=== PATIENT | female | born 1945 | race Caucasian/White ===

== ENCOUNTER 2017-07-02 20:31 | Inpatient (IN) | payer MEDICARE, OTHER ==
[~2017-07-02] VITALS: Ht 157.5 cm; Wt 82.6 kg
[~2017-07-02 20:31] MED LIST: ALBU05 INH; FLUT1DIS INH
[2017-07-02] MEDS ORDERED: ACETAMINOPHEN 325MG TABLET PO STA (23:18)
[2017-07-02] MEDS ORDERED: IPRATROPIUM BROMIDE (0.02%) 0.5MG/2.5ML NEB HHN STA (23:18)
[2017-07-02] MEDS ORDERED: ALBUTEROL (0.083%) 2.5MG/3ML NEB HHN STA (23:18)
[2017-07-02] MEDS ORDERED: METHYLPREDNISOLONE SOD SUCC 125 MG/2 ML VIAL IV STA (23:18)
[2017-07-02] MEDS ORDERED: SODIUM CHLORIDE 0.9% 1,000 ML IV ONE (23:18)
[2017-07-02] MEDS ORDERED: AZITHROMYCIN 500 MG in DEXT 5% WATER 250 ML IV ONE (23:30)
[2017-07-02] MEDS ORDERED: MAGNESIUM 2 G PREMIX 50 ML IV ONE (23:30)
[2017-07-02] MEDS ORDERED: CEFTRIAXONE 1 G PREMIX 50 ML IV ONE (23:30)
[2017-07-02] MEDS ORDERED: ASPIRIN 81MG TABLET PO ONE (23:30)
[2017-07-02] MEDS ORDERED: NITROGLYCERIN OINT 1GM/INCH UDPKT TD ONE (23:30)
[2017-07-03 00:05] LABS: HEMOGLOBIN. 11.6 g/dL (12.0-16.0); MEAN CORPUSCULAR HEMOGLOBIN 28.2 pg (28.0-32.0); MEAN CORPUSCULAR VOLUME 87.5 fL (81.0-99.0); MEAN PLATELET VOLUME 7.1 fl (7.4-10.4); PLATELET 324 x1000/uL (130-400); RED BLOOD CELL COUNT 4.11 mill/uL (4.2-5.4); RED CELL DISTRIBUTION WIDTH 14.2 % (11.6-14.6)
[2017-07-03 00:26] LABS: CHLORIDE 94 mEq/L (98-107); ETHANOL BLOOD < 10 mg/dL; TROPONIN I < 0.02 ng/mL (0.00-0.04)
[2017-07-03 00:31] LABS: INR 1.2; PROTHROMBIN TIME 12.2 sec (9.4-11.6)
[2017-07-03] MEDS ORDERED: OSELTAMIVIR 75MG CAPSULE PO ONE (00:45)
[2017-07-03 00:49] LABS: BG BASE EXCESS 8.6 mmol/L (-2.0-2.0); BG CARBOXYHEMOGLOBIN 0.6 % (0.5-1.5); BG DEOXYHEMOGLOBIN 0.7 % (0.0-5.0); BG FRACTION INSPIRED OXYGEN 36; BG HCO3 ACT 36.3 mmol/L (22.0-26.0); BG METHEMOGLOBIN 0.3 % (0.0-1.5); BG OXYGEN SATURATION 99.3 % (92.0-98.5); BG OXYHEMOGLOBIN 98.4 % (94.0-97.0); BG PCO2 65.9 mmHg (35.0-45.0); BG PH 7.359 (7.350-7.450); BG SAMPLE SITE RIGHT RADIAL; BG TOTAL HEMOGLOBIN 12.8 g/dL (12.0-18.0); BG VENT MODE NASAL CANNULA
[2017-07-03 01:38] LABS: PLATELET ESTIMATE NORMAL
[2017-07-03] MEDS ORDERED: AZITHROMYCIN 500 MG in SODIUM CHLORIDE 0.9% 250 ML IV ONE (01:45)
[2017-07-03] MEDS ORDERED: ALBUTEROL (0.083%) 2.5MG/3ML NEB HHN STA (06:16)
[2017-07-03 08:50] VITALS: BP 128/72
[2017-07-03 09:00] VITALS: BP 128/72
[2017-07-03] MEDS ORDERED: PROT20 PO (09:51)
[2017-07-03] MEDS ORDERED: SERT-112 PO (09:51)
[2017-07-03] MEDS ORDERED: FERR325T6 PO (09:51)
[2017-07-03] MEDS ORDERED: AMLO10TA80 PO (09:51)
[2017-07-03] MEDS ORDERED: LOSA1TAB34 PO (09:51)
[2017-07-03] MEDS ORDERED: DEXT 5%/0.45% NACL 1000ML 1,000 ML IV SCH (10:18)
[2017-07-03] MEDS ORDERED: CEFTRIAXONE 1,000 MG in DEXTROSE 5% WATER 50 ML IV SCH (10:30)
[2017-07-03] MEDS ORDERED: LORAZEPAM 2MG/ML CPJ IV PRN (10:30)
[2017-07-03] MEDS ORDERED: ACETAMINOPHEN 325MG TABLET PO PRN (10:30)
[2017-07-03] MEDS ORDERED: ONDANSETRON HCL 4MG/2ML VIAL IV PRN (10:30)
[2017-07-03] MEDS ORDERED: DOCUSATE SODIUM 100MG CAPSULE PO PRN (10:30)
[2017-07-03] MEDS ORDERED: CLONIDINE 0.1MG TABLET PO PRN (10:30)
[2017-07-03] MEDS: ENOXAPARIN 40MG/0.4ML SYR SUBCUT SCH (11:18)
[2017-07-03 12:00] VITALS: BP 129/93
[2017-07-03] MEDS ORDERED: MEDICATION NOT ON FORMULARY EA (Pantoprazole Sodium (Protonix) 1 TAB) PO SCH (12:15)
[2017-07-03] MEDS ORDERED: MEDICATION NOT ON FORMULARY EA (Ferrous Sulfate 325 MG) PO SCH (12:15)
[2017-07-03] MEDS ORDERED: MEDICATION NOT ON FORMULARY EA (Losartan/Hydrochlorothiazide (Losartan-Hctz 50-12.5 Mg T PO SCH (12:15)
[2017-07-03] MEDS ORDERED: MULT-1116 PO (12:17)
[2017-07-03] MEDS: FERROUS SULFATE 325MG TABLET PO SCH (13:01)
[2017-07-03] MEDS: SERTRALINE HCL 50MG TABLET PO SCH (13:01)
[2017-07-03] MEDS: AMLODIPINE 5MG TABLET PO SCH (13:01)
[2017-07-03] MEDS: LOSARTAN POTASSIUM 50 MG TABLET PO SCH (13:01)
[2017-07-03] MEDS: HYDROCHLOROTHIAZIDE 12.5MG CAPSULE PO SCH (13:02)
[2017-07-03] MEDS: PANTOPRAZOLE 40MG DR TABLET PO SCH (13:03)
[2017-07-03] MEDS ORDERED: THROAT LOZENGES-BENZOCAINE/MENTH/CETYLPYRD CL LOZENGES MM PRN (13:15)
[2017-07-03] MEDS: METHYLPREDNISOLONE SOD SUCC 125 MG/2 ML VIAL IV SCH ×2 (13:20→21:08)
[2017-07-03 16:00] VITALS: BP 113/62
[2017-07-03 20:00] VITALS: BP 128/77
[2017-07-03] MEDS: ALBUTEROL (0.083%) 2.5MG/3ML NEB HHN PRN (22:55)
[2017-07-04] VITALS (7 sets, daily range): BP systolic 111–138; BP diastolic 67–86
[2017-07-04] MEDS: CEFTRIAXONE 1 G PREMIX 50 ML IV SCH ×2 (00:06→23:56)
[2017-07-04] MEDS: AZITHROMYCIN 500 MG in DEXT 5% WATER 250 ML IV SCH (00:50)
[2017-07-04] MEDS: PANTOPRAZOLE 40MG DR TABLET PO SCH (06:31)
[2017-07-04] MEDS: METHYLPREDNISOLONE SOD SUCC 125 MG/2 ML VIAL IV SCH ×3 (06:31→21:48)
[2017-07-04] MEDS: HYDROCHLOROTHIAZIDE 12.5MG CAPSULE PO SCH (08:25)
[2017-07-04] MEDS: AMLODIPINE 5MG TABLET PO SCH (08:25)
[2017-07-04] MEDS: FERROUS SULFATE 325MG TABLET PO SCH (08:25)
[2017-07-04] MEDS: ENOXAPARIN 40MG/0.4ML SYR SUBCUT SCH (08:25)
[2017-07-04] MEDS: LOSARTAN POTASSIUM 50 MG TABLET PO SCH (08:26)
[2017-07-04] MEDS: SERTRALINE HCL 50MG TABLET PO SCH (08:26)
[2017-07-04 10:58] LABS: BG BASE EXCESS 12.6 mmol/L (-2.0-2.0); BG CARBOXYHEMOGLOBIN 0.5 % (0.5-1.5); BG DEOXYHEMOGLOBIN 5.3 % (0.0-5.0); BG HCO3 ACT 41.1 mmol/L (22.0-26.0); BG METHEMOGLOBIN 0.1 % (0.0-1.5); BG OXYGEN SATURATION 94.7 % (92.0-98.5); BG OXYHEMOGLOBIN 94.1 % (94.0-97.0); BG PCO2 74.5 mmHg (35.0-45.0); BG SAMPLE SITE RIGHT RADIAL; BG TOTAL HEMOGLOBIN 12.5 g/dL (12.0-18.0); BG VENT MODE NASAL CANNULA
[2017-07-04 11:26] LABS: HEMATOCRIT. 35.9 % (36.0-48.0); HEMOGLOBIN. 11.4 g/dL (12.0-16.0); MEAN CORPUSCULAR HEMOGLOBIN 27.8 pg (28.0-32.0); MEAN CORPUSCULAR VOLUME 87.6 fL (81.0-99.0); MEAN PLATELET VOLUME 7.3 fl (7.4-10.4); PLATELET 390 x1000/uL (130-400); RED CELL DISTRIBUTION WIDTH 14.2 % (11.6-14.6)
[2017-07-04 12:03] LABS: CHLORIDE 92 mEq/L (98-107)
[2017-07-04 12:19] LABS: HDL CHOLESTEROL 61 mg/dL (40-59); LDL CHOLESTEROL 124 mg/dL (5-100)
[2017-07-04] MEDS: BUDESONIDE 0.5MG/2ML NEB HHN SCH ×2 (12:32→21:28)
[2017-07-04] MEDS: ALBUTEROL (0.083%) 2.5MG/3ML NEB HHN PRN ×2 (12:34→21:27)
[2017-07-04 13:15] LABS: PLATELET ESTIMATE NORMAL
[2017-07-04 23:56] LABS: CLARITY URINE CLEAR (CLEAR); COLOR URINE YELLOW (YELLOW); KETONES URINE NEGATIVE (NEGATIVE); LEUKOCYTE ESTERASE URINE NEGATIVE (NEGATIVE); NITRITE URINE NEGATIVE (NEGATIVE); OCCULT BLOOD URINE NEGATIVE (NEGATIVE); PH URINE 6.5 (4.5-8.0); PROTEIN URINE NEGATIVE (NEGATIVE); SPECIFIC GRAVITY URINE 1.017 (1.005-1.030); UROBILINOGEN URINE 0.2 E.U./dL (0.2-1.0)
[2017-07-05] VITALS (7 sets, daily range): BP systolic 134–154; BP diastolic 70–95
[2017-07-05 00:48] LABS: *AMPHETAMINES SCREEN URINE NEGATIVE (NEGATIVE); *BARBITURATES SCREEN URINE NEGATIVE (NEGATIVE); *BENZODIAZEPINES SCREEN URINE NEGATIVE (NEGATIVE); *COCAINE SCREEN URINE NEGATIVE (NEGATIVE); CANNABINOID URINE SCREEN NEGATIVE (NEGATIVE); METHADONE URINE SCREEN NEGATIVE (NEGATIVE); OPIATES URINE SCREEN NEGATIVE (NEGATIVE); PHENCYCLIDINE URINE SCREEN NEGATIVE (NEGATIVE)
[2017-07-05] MEDS: AZITHROMYCIN 500 MG in DEXT 5% WATER 250 ML IV SCH (00:52)
[2017-07-05] MEDS: METHYLPREDNISOLONE SOD SUCC 125 MG/2 ML VIAL IV SCH ×3 (06:57→21:29)
[2017-07-05] MEDS: PANTOPRAZOLE 40MG DR TABLET PO SCH (06:57)
[2017-07-05] MEDS: BUDESONIDE 0.5MG/2ML NEB HHN SCH ×2 (08:06→20:35)
[2017-07-05] MEDS: ALBUTEROL (0.083%) 2.5MG/3ML NEB HHN PRN ×2 (08:06→17:26)
[2017-07-05] MEDS: FERROUS SULFATE 325MG TABLET PO SCH (08:43)
[2017-07-05] MEDS: SERTRALINE HCL 50MG TABLET PO SCH (08:43)
[2017-07-05] MEDS: ENOXAPARIN 40MG/0.4ML SYR SUBCUT SCH (08:43)
[2017-07-05] MEDS: AMLODIPINE 5MG TABLET PO SCH (08:43)
[2017-07-05 14:16] LABS: BG BASE EXCESS 9.8 mmol/L (-2.0-2.0); BG DEOXYHEMOGLOBIN 5.9 % (0.0-5.0); BG FRACTION INSPIRED OXYGEN 36; BG HCO3 ACT 37.9 mmol/L (22.0-26.0); BG OXYHEMOGLOBIN 93.1 % (94.0-97.0); BG PCO2 69.7 mmHg (35.0-45.0); BG PH 7.353 (7.350-7.450); BG PO2 73.2 mmHg (75.0-100.0); BG SAMPLE SITE RIGHT RADIAL; BG TOTAL HEMOGLOBIN 12.3 g/dL (12.0-18.0); BG VENT MODE NASAL CANNULA
[2017-07-05] MEDS: METRONIDAZOLE 500 MG PREMIX 100 ML IV SCH ×2 (15:21→21:29)
[2017-07-05] MEDS ORDERED: VANCOMYCIN 1500MG in DEXTROSE 5% WATER 250ML IV SCH (16:00)
[2017-07-05 16:03] LABS: HEMATOCRIT. 35.6 % (36.0-48.0); HEMOGLOBIN. 11.4 g/dL (12.0-16.0); MEAN CORPUSCULAR VOLUME 87.5 fL (81.0-99.0); MEAN PLATELET VOLUME 7.2 fl (7.4-10.4); PLATELET 441 x1000/uL (130-400); RED BLOOD CELL COUNT 4.07 mill/uL (4.2-5.4); RED CELL DISTRIBUTION WIDTH 14.5 % (11.6-14.6)
[2017-07-05 16:17] LABS: CHLORIDE 89 mEq/L (98-107)
[2017-07-05 16:47] LABS: PLATELET ESTIMATE INCREASED
[2017-07-05] MEDS: CEFEPIME 1,000 MG in DEXTROSE 5% WATER 50 ML IV SCH (17:31)
[2017-07-05] MEDS: ATORVASTATIN CALCIUM 10MG TABLET PO SCH (20:00)
[2017-07-06] VITALS (59 sets, daily range): BP systolic 36–163; BP diastolic 23–92
[2017-07-06 01:52] LABS: BG BASE EXCESS 18.4 mmol/L (-2.0-2.0); BG BILEVEL POS AIRWAY PRESSURE 15/5; BG CARBOXYHEMOGLOBIN 0.4 % (0.5-1.5); BG DEOXYHEMOGLOBIN 2.6 % (0.0-5.0); BG FRACTION INSPIRED OXYGEN 0.45; BG HCO3 ACT 48.9 mmol/L (22.0-26.0); BG METHEMOGLOBIN 0.3 % (0.0-1.5); BG OXYGEN SATURATION 97.4 % (92.0-98.5); BG OXYHEMOGLOBIN 96.7 % (94.0-97.0); BG PH 7.316 (7.350-7.450); BG PO2 105.4 mmHg (75.0-100.0); BG SAMPLE SITE LEFT RADIAL; BG TOTAL HEMOGLOBIN 11.8 g/dL (12.0-18.0); BG VENT MODE MASK - BIPAP; BG VENT RATE 14 set
[2017-07-06] MEDS: CEFEPIME 1,000 MG in DEXTROSE 5% WATER 50 ML IV SCH ×2 (05:01→18:07)
[2017-07-06] MEDS: METRONIDAZOLE 500 MG PREMIX 100 ML IV SCH ×3 (05:01→22:18)
[2017-07-06] MEDS: METHYLPREDNISOLONE SOD SUCC 125 MG/2 ML VIAL IV SCH ×3 (05:01→22:18)
[2017-07-06] MEDS: VANCOMYCIN 1,000 MG in DEXT 5% WATER 250 ML IV SCH ×2 (05:02→23:32)
[2017-07-06] MEDS: PANTOPRAZOLE 40MG DR TABLET PO SCH (05:45)
[2017-07-06 07:07] LABS: HEMATOCRIT 34.6 % (36.0-48.0); HEMOGLOBIN 11.1 g/dL (12.0-16.0); MEAN CORPUSCULAR HEMOGLOBIN 28.1 pg (28.0-32.0); MEAN CORPUSCULAR VOLUME 87.6 fL (81.0-99.0); PLATELET 464 x1000/uL (130-400); RED BLOOD CELL COUNT 3.95 mill/uL (4.2-5.4); RED CELL DISTRIBUTION WIDTH 14.3 % (11.6-14.6)
[2017-07-06 07:31] LABS: CHLORIDE 89 mEq/L (98-107)
[2017-07-06] MEDS: ALBUTEROL (0.083%) 2.5MG/3ML NEB HHN PRN (07:40)
[2017-07-06] MEDS: BUDESONIDE 0.5MG/2ML NEB HHN SCH (07:41)
[2017-07-06] MEDS: AMLODIPINE 5MG TABLET PO SCH (09:00)
[2017-07-06] MEDS: SERTRALINE HCL 50MG TABLET PO SCH (09:00)
[2017-07-06] MEDS: FERROUS SULFATE 325MG TABLET PO SCH (09:00)
[2017-07-06] MEDS: ENOXAPARIN 40MG/0.4ML SYR SUBCUT SCH (09:00)
[2017-07-06 10:09] LABS: BG BASE EXCESS 12.3 mmol/L (-2.0-2.0); BG BILEVEL POS AIRWAY PRESSURE 15/5; BG CARBOXYHEMOGLOBIN 0.2 % (0.5-1.5); BG DEOXYHEMOGLOBIN 2.7 % (0.0-5.0); BG FRACTION INSPIRED OXYGEN 45; BG HCO3 ACT 42.5 mmol/L (22.0-26.0); BG METHEMOGLOBIN 0.3 % (0.0-1.5); BG OXYGEN SATURATION 97.3 % (92.0-98.5); BG OXYHEMOGLOBIN 96.8 % (94.0-97.0); BG PCO2 90.9 mmHg (35.0-45.0); BG PH 7.288 (7.350-7.450); BG PO2 103.2 mmHg (75.0-100.0); BG SAMPLE SITE RIGHT RADIAL; BG TOTAL HEMOGLOBIN 12.3 g/dL (12.0-18.0); BG VENT MODE MASK - BIPAP; BG VENT RATE 16 set
[2017-07-06] MEDS ORDERED: PROPOFOL 10MG/ML 100ML 100 ML IV PRN (11:37)
[2017-07-06] MEDS ORDERED: NOREPINEPHRINE 16 MG in DEXT 5% WATER 484 ML IV PRN (12:00)
[2017-07-06] MEDS: IPRATROPIUM/ALBUTEROL 0.5-3(2.5)MG/3ML NEB HHN SCH ×3 (12:08→20:47)
[2017-07-06] MEDS ORDERED: STERILE WATER FOR INJECTION 10ML VIAL ONE (12:20)
[2017-07-06] MEDS ORDERED: SUCCINYLCHOLINE CHLORIDE 200MG/10ML VIAL IV ONE (12:20)
[2017-07-06] MEDS ORDERED: ETOMIDATE 2MG/ML 10ML VIAL IV ONE (12:20)
[2017-07-06] MEDS ORDERED: VECURONIUM BROMIDE 10 MG/VIAL IV ONE (12:20)
[2017-07-06] MEDS ORDERED: SODIUM CHLORIDE 0.9% 500 ML IV SCH (12:30)
[2017-07-06] MEDS: IPRATROPIUM/ALBUTEROL 0.5-3(2.5)MG/3ML NEB HHN PRN ×2 (13:23→17:57)
[2017-07-06 13:30] LABS: BG BASE EXCESS 12.9 mmol/L (-2.0-2.0); BG CARBOXYHEMOGLOBIN 0.5 % (0.5-1.5); BG DEOXYHEMOGLOBIN 0.9 % (0.0-5.0); BG FRACTION INSPIRED OXYGEN 50; BG HCO3 ACT 41.7 mmol/L (22.0-26.0); BG METHEMOGLOBIN 0.3 % (0.0-1.5); BG OXYGEN SATURATION 99.1 % (92.0-98.5); BG OXYHEMOGLOBIN 98.3 % (94.0-97.0); BG PCO2 79.7 mmHg (35.0-45.0); BG PH 7.337 (7.350-7.450); BG PO2 189.7 mmHg (75.0-100.0); BG SAMPLE SITE RIGHT RADIAL; BG TIDAL VOLUME(mL) 500 mL; BG TOTAL HEMOGLOBIN 11.5 g/dL (12.0-18.0); BG VENT MODE VENT - A/C; BG VENT RATE 20 set
[2017-07-06] MEDS: MIDAZOLAM HCL 50 MG in DEXTROSE 5% WATER 40 ML IV PRN ×3 (13:50→21:38)
[2017-07-06] MEDS: FENTANYL CITRATE/PF 500 MCG in SODIUM CHLORIDE 0.9% 40 ML IV PRN ×3 (13:52→21:39)
[2017-07-06] MEDS: DEXT 5%/0.9% NACL 1,000 ML IV SCH (14:01)
[2017-07-06 16:42] LABS: BG BASE EXCESS 14.6 mmol/L (-2.0-2.0); BG CARBOXYHEMOGLOBIN 0.1 % (0.5-1.5); BG DEOXYHEMOGLOBIN 0.8 % (0.0-5.0); BG FRACTION INSPIRED OXYGEN 50; BG HCO3 ACT 39.2 mmol/L (22.0-26.0); BG METHEMOGLOBIN 0.2 % (0.0-1.5); BG OXYGEN SATURATION 99.2 % (92.0-98.5); BG OXYHEMOGLOBIN 98.9 % (94.0-97.0); BG PCO2 48.9 mmHg (35.0-45.0); BG PH 7.522 (7.350-7.450); BG PO2 203.1 mmHg (75.0-100.0); BG SAMPLE SITE RIGHT RADIAL; BG TIDAL VOLUME(mL) 450 mL; BG TOTAL HEMOGLOBIN 11.1 g/dL (12.0-18.0); BG VENT MODE VENT - A/C; BG VENT RATE 20 set
[2017-07-06] MEDS ORDERED: DOCUSATE SODIUM 100MG CAPSULE NG PRN (19:15)
[2017-07-06] MEDS: ATORVASTATIN CALCIUM 10MG TABLET PO SCH (21:00)
[2017-07-06] MEDS ORDERED: FENTANYL CITRATE/PF 1,000 MCG in SODIUM CHLORIDE 0.9% 80 ML IV PRN (22:15)
[2017-07-06] MEDS ORDERED: MIDAZOLAM HCL 100 MG in DEXT 5% WATER 80 ML IV PRN (22:15)
[2017-07-06] MEDS ORDERED: CLONIDINE 0.1MG TABLET NG PRN (22:30)
[2017-07-07] VITALS (64 sets, daily range): BP systolic 81–163; BP diastolic 47–92
[2017-07-07] MEDS: IPRATROPIUM/ALBUTEROL 0.5-3(2.5)MG/3ML NEB HHN SCH ×7 (00:28→23:50)
[2017-07-07] MEDS: DEXT 5%/0.9% NACL 1,000 ML IV SCH ×2 (02:27→16:00)
[2017-07-07] MEDS: METRONIDAZOLE 500 MG PREMIX 100 ML IV SCH ×3 (05:11→21:05)
[2017-07-07] MEDS: CEFEPIME 1,000 MG in DEXTROSE 5% WATER 50 ML IV SCH ×2 (05:11→18:00)
[2017-07-07] MEDS: METHYLPREDNISOLONE SOD SUCC 125 MG/2 ML VIAL IV SCH ×3 (05:19→21:04)
[2017-07-07] MEDS: FERROUS SULFATE 300MG/5ML UDC PO SCH (08:41)
[2017-07-07] MEDS: PANTOPRAZOLE SODIUM 40 MG/VIAL IV SCH (08:41)
[2017-07-07] MEDS: AMLODIPINE 5MG TABLET NG SCH (08:42)
[2017-07-07] MEDS: SERTRALINE HCL 50MG TABLET NG SCH (08:42)
[2017-07-07 10:06] LABS: BG BASE EXCESS 14.5 mmol/L (-2.0-2.0); BG CARBOXYHEMOGLOBIN 0.2 % (0.5-1.5); BG DEOXYHEMOGLOBIN 2.1 % (0.0-5.0); BG FRACTION INSPIRED OXYGEN 40; BG HCO3 ACT 41.4 mmol/L (22.0-26.0); BG METHEMOGLOBIN 0.3 % (0.0-1.5); BG OXYGEN SATURATION 97.9 % (92.0-98.5); BG OXYHEMOGLOBIN 97.4 % (94.0-97.0); BG PCO2 65.3 mmHg (35.0-45.0); BG PO2 108.7 mmHg (75.0-100.0); BG SAMPLE SITE RIGHT RADIAL; BG TIDAL VOLUME(mL) 400 mL; BG TOTAL HEMOGLOBIN 10.8 g/dL (12.0-18.0); BG VENT MODE VENT - A/C; BG VENT RATE 14 set
[2017-07-07] MEDS ORDERED: LORAZEPAM 2MG/ML CPJ IV PRN (10:45)
[2017-07-07 11:24] LABS: HEMOGLOBIN. 9.8 g/dL (12.0-16.0); MEAN CORPUSCULAR HEMOGLOBIN 27.6 pg (28.0-32.0); MEAN CORPUSCULAR VOLUME 87.1 fL (81.0-99.0); MEAN PLATELET VOLUME 6.8 fl (7.4-10.4); PLATELET 313 x1000/uL (130-400); RED BLOOD CELL COUNT 3.56 mill/uL (4.2-5.4); RED CELL DISTRIBUTION WIDTH 14.5 % (11.6-14.6)
[2017-07-07] MEDS: ENOXAPARIN 40MG/0.4ML SYR SUBCUT SCH (11:29)
[2017-07-07 11:36] LABS: CHLORIDE 97 mEq/L (98-107)
[2017-07-07 12:19] LABS: NUCLEATED RED BLOOD CELLS 1 /100 WBC; PLATELET ESTIMATE NORMAL
[2017-07-07] MEDS: DILTIAZEM HCL 30MG TABLET PO SCH ×3 (14:43→23:04)
[2017-07-07] MEDS: VANCOMYCIN 1,000 MG in DEXT 5% WATER 250 ML IV SCH (18:00)
[2017-07-07] MEDS: ATORVASTATIN CALCIUM 10MG TABLET PO SCH (20:29)
[2017-07-07] MEDS: DOCUSATE SODIUM SUGAR FREE 100MG/10ML UDC NG PRN (20:30)
[2017-07-08] VITALS (32 sets, daily range): BP systolic 123–173; BP diastolic 70–97
[2017-07-08] MEDS: IPRATROPIUM/ALBUTEROL 0.5-3(2.5)MG/3ML NEB HHN SCH ×5 (03:54→23:55)
[2017-07-08] MEDS: DILTIAZEM HCL 30MG TABLET PO SCH ×4 (05:03→23:48)
[2017-07-08] MEDS: METHYLPREDNISOLONE SOD SUCC 125 MG/2 ML VIAL IV SCH ×3 (05:03→21:04)
[2017-07-08] MEDS: CEFEPIME 1,000 MG in DEXTROSE 5% WATER 50 ML IV SCH ×2 (05:04→17:20)
[2017-07-08] MEDS: METRONIDAZOLE 500 MG PREMIX 100 ML IV SCH ×3 (05:04→21:03)
[2017-07-08 05:44] LABS: HEMATOCRIT. 34.8 % (36.0-48.0); MEAN CORPUSCULAR VOLUME 88.2 fL (81.0-99.0); MEAN PLATELET VOLUME 7.6 fl (7.4-10.4); PLATELET 394 x1000/uL (130-400); RED BLOOD CELL COUNT 3.94 mill/uL (4.2-5.4); RED CELL DISTRIBUTION WIDTH 14.5 % (11.6-14.6)
[2017-07-08 06:17] LABS: CHLORIDE 98 mEq/L (98-107)
[2017-07-08 06:28] LABS: VANCOMYCIN TROUGH 9.2 ug/mL (5.0-10.0)
[2017-07-08 07:35] LABS: PLATELET ESTIMATE NORMAL
[2017-07-08 08:52] LABS: BG BASE EXCESS 7.8 mmol/L (-2.0-2.0); BG CARBOXYHEMOGLOBIN 0.4 % (0.5-1.5); BG DEOXYHEMOGLOBIN 1.8 % (0.0-5.0); BG FRACTION INSPIRED OXYGEN 40; BG HCO3 ACT 35.3 mmol/L (22.0-26.0); BG METHEMOGLOBIN 0.3 % (0.0-1.5); BG OXYGEN SATURATION 98.2 % (92.0-98.5); BG OXYHEMOGLOBIN 97.5 % (94.0-97.0); BG PCO2 64.3 mmHg (35.0-45.0); BG PH 7.357 (7.350-7.450); BG PO2 113.8 mmHg (75.0-100.0); BG SAMPLE SITE RIGHT RADIAL; BG TIDAL VOLUME(mL) 400 mL; BG TOTAL HEMOGLOBIN 11.9 g/dL (12.0-18.0); BG VENT MODE VENT - A/C; BG VENT RATE 10 set
[2017-07-08] MEDS: PANTOPRAZOLE SODIUM 40 MG/VIAL IV SCH (09:07)
[2017-07-08] MEDS: AMLODIPINE 5MG TABLET NG SCH (09:08)
[2017-07-08] MEDS: FERROUS SULFATE 300MG/5ML UDC PO SCH (09:08)
[2017-07-08] MEDS: DEXT 5%/0.9% NACL 1,000 ML IV SCH (09:08)
[2017-07-08] MEDS: SERTRALINE HCL 50MG TABLET NG SCH (09:08)
[2017-07-08] MEDS: ENOXAPARIN 40MG/0.4ML SYR SUBCUT SCH (09:09)
[2017-07-08] MEDS ORDERED: LACTULOSE 20G/30ML UDC PO NR (10:00)
[2017-07-08] MEDS: MORPHINE SULFATE 4 MG/ML CPJ (NOT FOR IM USE) IV PRN ×2 (11:09→17:57)
[2017-07-08 12:04] LABS: BG BASE EXCESS 7.6 mmol/L (-2.0-2.0); BG CARBOXYHEMOGLOBIN 0.2 % (0.5-1.5); BG DEOXYHEMOGLOBIN 5.6 % (0.0-5.0); BG FRACTION INSPIRED OXYGEN 45; BG HCO3 ACT 38.1 mmol/L (22.0-26.0); BG METHEMOGLOBIN 0.2 % (0.0-1.5); BG OXYGEN SATURATION 94.4 % (92.0-98.5); BG PCO2 89.5 mmHg (35.0-45.0); BG PH 7.247 (7.350-7.450); BG PO2 81.6 mmHg (75.0-100.0); BG PRESSURE SUPPORT 14; BG SAMPLE SITE RIGHT BRACHIAL; BG TOTAL HEMOGLOBIN 12.9 g/dL (12.0-18.0); BG VENT MODE VENT - CPAP
[2017-07-08] MEDS: VANCOMYCIN 1500MG in DEXTROSE 5% WATER 250ML IV SCH ×2 (13:09→23:48)
[2017-07-08] MEDS: ATORVASTATIN CALCIUM 10MG TABLET PO SCH (21:03)
[2017-07-09] VITALS (40 sets, daily range): BP systolic 113–176; BP diastolic 62–154
[2017-07-09] MEDS: IPRATROPIUM/ALBUTEROL 0.5-3(2.5)MG/3ML NEB HHN SCH ×5 (04:15→20:20)
[2017-07-09] MEDS: METRONIDAZOLE 500 MG PREMIX 100 ML IV SCH ×3 (06:03→21:45)
[2017-07-09] MEDS: CEFEPIME 1,000 MG in DEXTROSE 5% WATER 50 ML IV SCH ×2 (06:04→17:41)
[2017-07-09] MEDS: METHYLPREDNISOLONE SOD SUCC 125 MG/2 ML VIAL IV SCH ×3 (06:04→21:45)
[2017-07-09] MEDS: DILTIAZEM HCL 30MG TABLET PO SCH ×3 (06:04→17:41)
[2017-07-09 07:19] LABS: CHLORIDE 97 mEq/L (98-107)
[2017-07-09 07:21] LABS: HEMATOCRIT. 35.4 % (36.0-48.0); HEMOGLOBIN. 11.2 g/dL (12.0-16.0); MEAN CORPUSCULAR HEMOGLOBIN 27.9 pg (28.0-32.0); MEAN PLATELET VOLUME 7.4 fl (7.4-10.4); PLATELET 384 x1000/uL (130-400); RED BLOOD CELL COUNT 4.02 mill/uL (4.2-5.4); RED CELL DISTRIBUTION WIDTH 14.3 % (11.6-14.6)
[2017-07-09 07:55] LABS: PLATELET ESTIMATE NORMAL
[2017-07-09] MEDS: MORPHINE SULFATE 4 MG/ML CPJ (NOT FOR IM USE) IV PRN ×3 (07:58→18:33)
[2017-07-09] MEDS: PANTOPRAZOLE SODIUM 40 MG/VIAL IV SCH (08:00)
[2017-07-09] MEDS: VANCOMYCIN 1500MG in DEXTROSE 5% WATER 250ML IV SCH (08:00)
[2017-07-09] MEDS: SERTRALINE HCL 50MG TABLET NG SCH (08:01)
[2017-07-09] MEDS: FERROUS SULFATE 300MG/5ML UDC PO SCH (08:01)
[2017-07-09] MEDS: AMLODIPINE 5MG TABLET NG SCH (08:01)
[2017-07-09] MEDS ORDERED: LACTULOSE 20G/30ML UDC PO SCH (13:15)
[2017-07-09 14:56] LABS: BG BASE EXCESS 11.7 mmol/L (-2.0-2.0); BG CARBOXYHEMOGLOBIN 0.7 % (0.5-1.5); BG DEOXYHEMOGLOBIN 6.4 % (0.0-5.0); BG FRACTION INSPIRED OXYGEN 40; BG HCO3 ACT 42.1 mmol/L (22.0-26.0); BG METHEMOGLOBIN 0.3 % (0.0-1.5); BG OXYGEN SATURATION 93.5 % (92.0-98.5); BG OXYHEMOGLOBIN 92.6 % (94.0-97.0); BG PCO2 91.6 mmHg (35.0-45.0); BG PO2 73.3 mmHg (75.0-100.0); BG PRESSURE SUPPORT 15; BG SAMPLE SITE LEFT RADIAL; BG TOTAL HEMOGLOBIN 12.5 g/dL (12.0-18.0); BG VENT MODE VENT - CPAP
[2017-07-09] MEDS ORDERED: MAGNESIUM HYDROXIDE 400MG/5ML 30ML UDC PO NR (19:30)
[2017-07-09] MEDS ORDERED: *TOBRAMYCIN PER PHARMACY XX SCH (19:45)
[2017-07-09] MEDS ORDERED: MAGNESIUM HYDROXIDE 400MG/5ML 30ML UDC PO SCH (20:20)
[2017-07-09] MEDS ORDERED: TOBRAMYCIN SULFATE 120 MG in SODIUM CHLORIDE 0.9% 100 ML IV SCH (21:30)
[2017-07-09] MEDS: ATORVASTATIN CALCIUM 10MG TABLET PO SCH (21:45)
[2017-07-10] VITALS (46 sets, daily range): BP systolic 109–161; BP diastolic 63–90
[2017-07-10] MEDS: DILTIAZEM HCL 30MG TABLET PO SCH ×4 (00:13→17:01)
[2017-07-10] MEDS: IPRATROPIUM/ALBUTEROL 0.5-3(2.5)MG/3ML NEB HHN SCH ×6 (00:35→20:42)
[2017-07-10] MEDS: CEFEPIME 1,000 MG in DEXTROSE 5% WATER 50 ML IV SCH ×2 (05:21→17:00)
[2017-07-10] MEDS: METHYLPREDNISOLONE SOD SUCC 125 MG/2 ML VIAL IV SCH ×3 (05:21→21:10)
[2017-07-10] MEDS: METRONIDAZOLE 500 MG PREMIX 100 ML IV SCH ×3 (05:22→21:10)
[2017-07-10 08:08] LABS: HEMATOCRIT. 34.4 % (36.0-48.0); MEAN CORPUSCULAR HEMOGLOBIN 28.1 pg (28.0-32.0); MEAN CORPUSCULAR VOLUME 87.6 fL (81.0-99.0); MEAN PLATELET VOLUME 7.6 fl (7.4-10.4); PLATELET 359 x1000/uL (130-400); RED BLOOD CELL COUNT 3.93 mill/uL (4.2-5.4); RED CELL DISTRIBUTION WIDTH 14.5 % (11.6-14.6)
[2017-07-10 08:35] LABS: CHLORIDE 97 mEq/L (98-107)
[2017-07-10] MEDS: FERROUS SULFATE 300MG/5ML UDC PO SCH (09:03)
[2017-07-10] MEDS: PANTOPRAZOLE SODIUM 40 MG/VIAL IV SCH (09:03)
[2017-07-10] MEDS: AMLODIPINE 5MG TABLET NG SCH (09:03)
[2017-07-10] MEDS: DOCUSATE SODIUM SUGAR FREE 100MG/10ML UDC NG PRN (09:03)
[2017-07-10] MEDS: SERTRALINE HCL 50MG TABLET NG SCH (09:03)
[2017-07-10] MEDS: LACTULOSE 20G/30ML UDC PO PRN ×2 (09:04→21:11)
[2017-07-10 09:16] LABS: PLATELET ESTIMATE NORMAL
[2017-07-10 13:43] LABS: BG BASE EXCESS 14.1 mmol/L (-2.0-2.0); BG DEOXYHEMOGLOBIN 1.9 % (0.0-5.0); BG FRACTION INSPIRED OXYGEN 40; BG HCO3 ACT 41.4 mmol/L (22.0-26.0); BG METHEMOGLOBIN 0.3 % (0.0-1.5); BG OXYGEN SATURATION 98.1 % (92.0-98.5); BG OXYHEMOGLOBIN 97.8 % (94.0-97.0); BG PCO2 66.7 mmHg (35.0-45.0); BG PH 7.411 (7.350-7.450); BG PO2 111.9 mmHg (75.0-100.0); BG SAMPLE SITE LEFT RADIAL; BG TIDAL VOLUME(mL) 400 mL; BG VENT MODE VENT - A/C; BG VENT RATE 14 set
[2017-07-10] MEDS: THEOPHYLLINE ANHYDROUS 80 MG/15 ML 120ML PO SCH ×2 (14:42→21:11)
[2017-07-10] MEDS: MORPHINE SULFATE 4 MG/ML CPJ (NOT FOR IM USE) IV PRN (14:42)
[2017-07-10 15:06] LABS: QFT MITOGEN VALUE 0.02 IU/mL (.); QFT TB AG VALUE 0.03 IU/mL (.); QFT TB GOLD Indeterminate (Negative)
[2017-07-10] MEDS ORDERED: TOBRAMYCIN SULFATE IV SCH (15:30)
[2017-07-10] MEDS ORDERED: SODIUM CHLORIDE 0.9% IV SCH (15:30)
[2017-07-10] MEDS: ATORVASTATIN CALCIUM 10MG TABLET PO SCH (21:09)
[2017-07-10] MEDS: TOBRAMYCIN SULFATE 160 MG in SODIUM CHLORIDE 0.9% 100 ML IV SCH (21:10)
[2017-07-11] VITALS (47 sets, daily range): BP systolic 101–160; BP diastolic 59–90
[2017-07-11] MEDS: IPRATROPIUM/ALBUTEROL 0.5-3(2.5)MG/3ML NEB HHN SCH ×7 (00:34→23:32)
[2017-07-11] MEDS: DILTIAZEM HCL 30MG TABLET PO SCH ×2 (01:00→05:16)
[2017-07-11] MEDS: METHYLPREDNISOLONE SOD SUCC 125 MG/2 ML VIAL IV SCH ×3 (05:16→21:43)
[2017-07-11] MEDS: METRONIDAZOLE 500 MG PREMIX 100 ML IV SCH ×3 (05:16→21:43)
[2017-07-11] MEDS: CEFEPIME 1,000 MG in DEXTROSE 5% WATER 50 ML IV SCH ×2 (05:16→18:26)
[2017-07-11] MEDS: LACTULOSE 20G/30ML UDC PO PRN (05:16)
[2017-07-11] MEDS: THEOPHYLLINE ANHYDROUS 80 MG/15 ML 120ML PO SCH ×3 (05:16→21:43)
[2017-07-11 06:40] LABS: HEMATOCRIT. 34.7 % (36.0-48.0); MEAN CORPUSCULAR HEMOGLOBIN 27.8 pg (28.0-32.0); MEAN CORPUSCULAR VOLUME 87.8 fL (81.0-99.0); MEAN PLATELET VOLUME 7.7 fl (7.4-10.4); PLATELET 352 x1000/uL (130-400); RED BLOOD CELL COUNT 3.95 mill/uL (4.2-5.4); RED CELL DISTRIBUTION WIDTH 14.5 % (11.6-14.6)
[2017-07-11 06:53] LABS: CHLORIDE 99 mEq/L (98-107)
[2017-07-11] MEDS: PANTOPRAZOLE SODIUM 40 MG/VIAL IV SCH (09:17)
[2017-07-11] MEDS: FERROUS SULFATE 300MG/5ML UDC PO SCH (09:17)
[2017-07-11] MEDS: SERTRALINE HCL 50MG TABLET NG SCH (09:17)
[2017-07-11] MEDS: AMLODIPINE 5MG TABLET NG SCH (09:18)
[2017-07-11 11:42] LABS: PLATELET ESTIMATE NORMAL
[2017-07-11] MEDS: DILTIAZEM HCL 60MG TABLET PO SCH ×2 (14:15→21:43)
[2017-07-11] MEDS ORDERED: NA PHOS,M-B/NA PHOS,DI-BA ENEMA 118ML PR NR (14:45)
[2017-07-11] MEDS: ATORVASTATIN CALCIUM 10MG TABLET PO SCH (20:30)
[2017-07-11] MEDS: TOBRAMYCIN SULFATE 160 MG in SODIUM CHLORIDE 0.9% 100 ML IV SCH (20:30)
[2017-07-12] VITALS (33 sets, daily range): BP systolic 120–156; BP diastolic 66–85
[2017-07-12] MEDS: IPRATROPIUM/ALBUTEROL 0.5-3(2.5)MG/3ML NEB HHN SCH ×4 (04:19→20:01)
[2017-07-12] MEDS: METRONIDAZOLE 500 MG PREMIX 100 ML IV SCH ×2 (06:24→13:38)
[2017-07-12] MEDS: DILTIAZEM HCL 60MG TABLET PO SCH (06:24)
[2017-07-12] MEDS: METHYLPREDNISOLONE SOD SUCC 125 MG/2 ML VIAL IV SCH ×2 (07:31→13:38)
[2017-07-12] MEDS: THEOPHYLLINE ANHYDROUS 80 MG/15 ML 120ML PO SCH ×2 (07:31→13:37)
[2017-07-12] MEDS: CEFEPIME 1,000 MG in DEXTROSE 5% WATER 50 ML IV SCH ×2 (07:44→17:59)
[2017-07-12] MEDS: PANTOPRAZOLE SODIUM 40 MG/VIAL IV SCH (08:26)
[2017-07-12] MEDS: FERROUS SULFATE 300MG/5ML UDC PO SCH (08:26)
[2017-07-12] MEDS: AMLODIPINE 5MG TABLET NG SCH (08:26)
[2017-07-12] MEDS: SERTRALINE HCL 50MG TABLET NG SCH (08:26)
[2017-07-12] MEDS: DILTIAZEM HCL 90MG TABLET PO SCH ×2 (11:35→17:58)
[2017-07-12] MEDS: MORPHINE SULFATE 4 MG/ML CPJ (NOT FOR IM USE) IV PRN (13:01)
[2017-07-12] MEDS: DOCUSATE SODIUM SUGAR FREE 100MG/10ML UDC NG PRN (17:58)
[2017-07-12] MEDS: METOPROLOL TARTRATE 50MG TABLET PO SCH ×2 (17:58→20:20)
[2017-07-12] MEDS: TOBRAMYCIN SULFATE 160 MG in SODIUM CHLORIDE 0.9% 100 ML IV SCH (18:00)
[2017-07-12] MEDS: ATORVASTATIN CALCIUM 10MG TABLET PO SCH (20:20)
[2017-07-12] MEDS ORDERED: IBUTILIDE FUMARATE 1 MG in SODIUM CHLORIDE 0.9% 50 ML IV NR (21:30)
[2017-07-13] VITALS (22 sets, daily range): BP systolic 104–143; BP diastolic 53–84
[2017-07-13] MEDS: METHYLPREDNISOLONE SOD SUCC 125 MG/2 ML VIAL IV SCH ×3 (00:07→14:44)
[2017-07-13] MEDS: DILTIAZEM HCL 90MG TABLET PO SCH ×4 (00:07→18:05)
[2017-07-13] MEDS: METRONIDAZOLE 500 MG PREMIX 100 ML IV SCH (00:07)
[2017-07-13] MEDS: IPRATROPIUM/ALBUTEROL 0.5-3(2.5)MG/3ML NEB HHN SCH ×6 (00:28→19:24)
[2017-07-13] MEDS: TOBRAMYCIN SULFATE 160 MG in SODIUM CHLORIDE 0.9% 100 ML IV SCH ×2 (05:50→18:03)
[2017-07-13] MEDS: CEFEPIME 1,000 MG in DEXTROSE 5% WATER 50 ML IV SCH ×2 (05:50→17:17)
[2017-07-13 06:32] LABS: HEMATOCRIT. 35.1 % (36.0-48.0); MEAN CORPUSCULAR HEMOGLOBIN 27.9 pg (28.0-32.0); MEAN CORPUSCULAR VOLUME 88.5 fL (81.0-99.0); MEAN PLATELET VOLUME 8.1 fl (7.4-10.4); PLATELET 318 x1000/uL (130-400); RED BLOOD CELL COUNT 3.96 mill/uL (4.2-5.4); RED CELL DISTRIBUTION WIDTH 14.7 % (11.6-14.6)
[2017-07-13 06:50] LABS: CHLORIDE 101 mEq/L (98-107)
[2017-07-13 07:13] LABS: PLATELET ESTIMATE NORMAL
[2017-07-13] MEDS: AMLODIPINE 5MG TABLET NG SCH (09:29)
[2017-07-13] MEDS: FERROUS SULFATE 300MG/5ML UDC PO SCH (09:29)
[2017-07-13] MEDS: PANTOPRAZOLE SODIUM 40 MG/VIAL IV SCH (09:29)
[2017-07-13] MEDS: SERTRALINE HCL 50MG TABLET NG SCH (09:29)
[2017-07-13] MEDS: METOPROLOL TARTRATE 50MG TABLET PO SCH (09:35)
== END 2017-07-13 21:10 | disposition short-term general hospital (02) | DRG 720 ==
LOC: ER 20:39 → 6WST 23:48 → EDBEDREQ 07-03 00:57 → EDBEDREQSVC 07-03 04:27 → ENRESERV 07-03 07:01 → 3WST 07-05 16:58 → CVICU 07-06 11:26
PROVIDERS: ADMIT Internal Medicine; ATTEND Internal Medicine
PROC: 5A1955Z Respiratory Ventilation, Greater than 96 Consecutive Hours (ICD-10-PCS; principal; 2017-07-06)
PROC: 05H533Z Insertion of Infusion Device into Right Subclavian Vein, Percutaneous Approach (ICD-10-PCS; 2017-07-06)
PROC: B546ZZA Ultrasonography of Right Subclavian Vein, Guidance (ICD-10-PCS; 2017-07-06)
PROC: 0BH17EZ Insertion of Endotracheal Airway into Trachea, Via Natural or Artificial Opening (ICD-10-PCS; 2017-07-06)
PROC: 5A09357 Assistance with Respiratory Ventilation, Less than 24 Consecutive Hours, Continuous Positive Airway Pressure (ICD-10-PCS; 2017-07-06)
DX: A41.9 Sepsis, unspecified organism (principal); J96.22 Acute and chronic respiratory failure with hypercapnia; J15.1 Pneumonia due to Pseudomonas; E87.3 Alkalosis; I95.9 Hypotension, unspecified; E87.2 Acidosis; J44.0 Chronic obstructive pulmonary disease with (acute) lower respiratory infection; E46 Unspecified protein-calorie malnutrition; I27.21 Secondary pulmonary arterial hypertension; J38.00 Paralysis of vocal cords and larynx, unspecified; J44.1 Chronic obstructive pulmonary disease with (acute) exacerbation; J45.901 Unspecified asthma with (acute) exacerbation; I10 Essential (primary) hypertension; F32.9 Major depressive disorder, single episode, unspecified; G89.29 Other chronic pain; M54.5 Low back pain; D64.9 Anemia, unspecified; R73.9 Hyperglycemia, unspecified; Z77.090 Contact with and (suspected) exposure to asbestos; Z99.81 Dependence on supplemental oxygen; Q24.0 Dextrocardia; Z79.899 Other long term (current) drug therapy; Z87.891 Personal history of nicotine dependence; Z68.33 Body mass index [BMI] 33.0-33.9, adult
CPT/HCPCS: 31500; 36415; 36569; 36600; 71045; 71250; 74018; 76937; 80048; 80053; 80061; 80200; 80202; 80305; 81003; 82375; 82805; 83036; 83605; 83690; 83880; 84443; 84478; 84484; 85025; 85027; 85610; 86480; 87040; 87070; 87077; 87086; 87116; 87186; 87804; 93005; 93306; 93970; 94002; 94003; 94640; 94664; 96365; 96366; 96368; 96375; 99285; A4216; A6261; C1725; C9113; G0482; J0330; J0456; J0692; J0696; J1650; J1742; J2060; J2250; J2270; J2405; J2704; J2930; J3010; J3260; J3370; J3475; J3490; J7030; J7042; J7050; J7060; J7611; J7620; J7626; A4315